=== PATIENT | male | born 1965 | race African-American/Black ===

== ENCOUNTER 2019-09-11 23:04 | Emergency (ER) | payer MEDICAID ==
[~2019-09-11] VITALS: Ht 172.7 cm; Wt 73.0 kg
[2019-09-12] MEDS ORDERED: LIDOCAINE HCL 1% 20ML VIAL (Pyxis) INJ INFIL ONE (05:00)
[2019-09-12 06:00] VITALS: BP 125/71
== END 2019-09-12 06:30 | disposition home or self-care (01) ==
LOC: ER 23:04
DX: S09.8XXA Other specified injuries of head, initial encounter (principal); S20.229A Contusion of unspecified back wall of thorax, initial encounter; Y08.89XA Assault by other specified means, initial encounter; Y93.89 Activity, other specified; Y92.89 Other specified places as the place of occurrence of the external cause; Y99.8 Other external cause status; F17.290 Nicotine dependence, other tobacco product, uncomplicated
CPT/HCPCS: 70450; 71045; 99284; J3490